=== PATIENT | female | born 1990 | race Two or more races ===

== ENCOUNTER 2017-04-14 14:41 | Outpatient (CLI) | payer OTHER | END 2017-04-14 14:54 | disposition home or self-care (01) | LOC: SONOGRAMA 14:41 | DX: R10.2 Pelvic and perineal pain (principal); N39.0 Urinary tract infection, site not specified ==

== ENCOUNTER 2025-02-02 11:00 | Day surgery (SDC) | payer OTHER ==
[2025-02-01 16:13] LABS: BASO % 0.9 % (0.1-1.2); EOS # 0.13 (0.04-0.54); EOS % 1.6 % (0.7-7.0); LYMPH # 2.50 (1.18-3.74); LYMPH % 30.5 % (19.3-53.1); MEAN PLATELET VOLUME 10.60 fl (9.4-12.4); MONO # 0.61 (0.24-0.82); MONO % 7.4 % (4.7-12.5); NEUT # 4.89 (1.56-6.13); NEUT % 59.5 % (34.0-71.1); RED CELL DISTRIBUTION WIDTH 11.7 % (11.6-14.4)
[2025-02-01 16:20] LABS: URINE APPEARANCE Clear; URINE BILIRRUBIN Negative (NEGATIVE); URINE BLOOD Negative; URINE COLOR Yellow; URINE GLUCOSE Negative (NEGATIVE); URINE KETONE Negative (NEGATIVE); URINE LEUKOCYTE Negative; URINE NITRATE Negative; URINE PROTEIN Negative (NEGATIVE); URINE UROBILINOGEN 0.2 E.U./dl
[2025-02-01 16:23] LABS: URINE BACTERIA 493.9 uL (0.0-1933); URINE EPITHELIAL CELLS 5.3 uL (0.0-38.8); URINE RBC 3.1 uL (0.0-20.8); URINE WBC 6.4 uL (0.0-23.2)
[2025-02-01 16:27] LABS: URINE CAST 0.00 uL (0.0-1.40)
[2025-02-01 16:36] LABS: COVID-19 AG NEGATIVE (NEGATIVE)
[2025-02-01 16:39] LABS: INR 0.97
[2025-02-01 17:02] LABS: ALT/SGPT 23.0 U/L (12-78); AST/SGOT 14.0 U/L (15-37); BILIRUBIN TOTAL 0.76 mg/dL (0.3-1.2); BUN CREA RATIO 20.0 (7.0-25.0); CREATININE SERUM 0.61 mg/dL (0.55-1.02); GFR 112.95; GLOBULINA 3.4 G/DL (2.4-3.5); GLUCOSE FASTING 88.0 mg/dL (65-100); OSMOLALITY SERUM 279.0 MOSM/KG (275-295)
[2025-02-02] MEDS ORDERED: CEFOXITIN SODIUM 2,000 MG VIAL IV ONE (11:42)
[2025-02-02] MEDS ORDERED: POVIDONE-IODINE 118 ML BOTT TOP ONE (12:52)
== END 2025-02-02 16:50 | disposition home or self-care (01) ==
LOC: CIR.AMB 11:00
PROVIDERS: ATTEND Obstetrics & Gynecology Gynecology
DX: O02.1 Missed abortion (principal)